=== PATIENT | male | born 1950 | race Caucasian/White ===

== ENCOUNTER 2018-05-12 00:47 | Outpatient (CLI) | payer MEDICARE, BC, SELFPAY ==
--- NOTE | 2018-05-12 10:15 | DI.US_ITS ---
SYMPTOMS/DIAGNOSIS: DIZZINESS CAROTID ULTRASOUND: A small amount of calcific plaque is seen in the both common carotid bulbs. The velocity measurements obtained are within the normal range. No significant stenosis is visible. The vertebral arteries show antegrade flow. IMPRESSION: Small amount of calcific plaque in the common carotid bulbs. No significant internal carotid artery stenosis.
== END 2018-05-12 01:07 ==
PROVIDERS: PCP Family Medicine; Visit Provider Family Medicine
DX: R42 Dizziness and giddiness (principal); I77.89 Other specified disorders of arteries and arterioles
CPT/HCPCS: 93880

== ENCOUNTER 2018-05-24 13:31 | Outpatient (CLI) | payer MEDICARE, BC, SELFPAY ==
--- NOTE | 2018-06-14 16:26 | W.CARDEVENT ---
Cardiac Event Recorder Cardiac Event Note: [facility] cardiac event recorder report Date of service: 05/24/2018 Enrollment: 05/24/2018-06/07/2018 Referring clinician: Dr. Chacha Hamm Indication: Palpitations Findings: 1. Baseline sinus rhythm, heart rate spectrum 42-146/min, average 75/min. 2. Rare PAC, less than 1%, 26 SVT runs, fastest 5 beats at 231/min, longest 12 seconds at 112/min. Likely ectopic atrial tachycardia. 3. Rare PVC, less than 1%, no VT. 4. No significant pauses. 5. 17 trigger events: 2 with brief SVT runs, 15 with sinus rhythm and single PAC/PVC. 6. Symptoms: Fluttering/racing x4, sinus rhythm, 52-87/min, one with 3-beat SVT run. Skipped/irregular beats x5, sinus rhythm, 73-87/min, one with PVC. No symptoms x3, with sinus rhythm, 2 episodes with PVCs.
--- NOTE | 2018-06-14 16:31 | CER_ITS ---
Cardiac Event Recorder Cardiac Event Note: [employer] cardiac event recorder report Date of service: 05/24/2018 Enrollment: 05/24/2018-06/07/2018 Referring clinician: Dr. Chacha Hamm Indication: Palpitations Findings: 1. Baseline sinus rhythm, heart rate spectrum 42-146/min, average 75/min. 2. Rare PAC, less than 1%, 26 SVT runs, fastest 5 beats at 231/min, longest 12 seconds at 112/min. Likely ectopic atrial tachycardia. 3. Rare PVC, less than 1%, no VT. 4. No significant pauses. 5. 17 trigger events: 2 with brief SVT runs, 15 with sinus rhythm and single PAC/PVC. 6. Symptoms: Fluttering/racing x4, sinus rhythm, 52-87/min, one with 3-beat SVT run. Skipped/irregular beats x5, sinus rhythm, 73-87/min, one with PVC. No symptoms x3, with sinus rhythm, 2 episodes with PVCs.
== END 2018-05-24 13:51 ==
PROVIDERS: PCP Family Medicine; Visit Provider Family Medicine
DX: R00.2 Palpitations (principal); I47.1 Supraventricular tachycardia
CPT/HCPCS: 93225

== ENCOUNTER 2018-06-09 02:48 | Outpatient (CLI) | payer MEDICARE, BC, SELFPAY ==
[2018-06-09 13:26] LABS: CREATININE 1.12 mg/dL (0.70-1.30); Cholesterol 142 mg/dL (50-200); HDL Cholesterol 46 mg/dL (40-60); LDL CHOLESTEROL 88 mg/dL (<100); Triglyceride 87 mg/dL (30-150)
== END 2018-06-09 03:08 ==
PROVIDERS: PCP Family Medicine; Visit Provider Family Medicine
DX: E78.5 Hyperlipidemia, unspecified (principal); I10 Essential (primary) hypertension
CPT/HCPCS: 36415; 80061; 83721; 82565

== ENCOUNTER 2018-06-14 16:29 | Outpatient (CLI) | payer MEDICARE, BC, SELFPAY | END 2018-06-14 16:49 | PROVIDERS: PCP Family Medicine; Visit Provider Internal Medicine Cardiovascular Disease | DX: R00.2 Palpitations (principal); I47.1 Supraventricular tachycardia | CPT/HCPCS: 0298T ==

== ENCOUNTER 2018-08-15 09:40 | Day surgery (SDC) | payer MEDICARE, BC, SELFPAY ==
[2018-08-15 10:01] VITALS: BP 139/84; PULSE 65; RESP 16; TEMP 35.1; O2SAT 97
[2018-08-15] MEDS: Lactated Ringers 1,000 ML 30 ML IV (10:20)
--- NOTE | 2018-08-15 11:40 | W.COLOREPORT ---
Date of service: 08/15/18 Time of Service: 11:00 Colonoscopy Report Date of procedure: 08/15/18 Pre-op diagnosis general: Personal history of colon polyps Post-op diagnosis procedure note: other Procedure: Colonoscopy to the cecum Surgeon: Magno Carbone Anesthesia proc note operative: MAC (Franci Orlando CRNA; ASA 2 Mallampati class II) Estimated blood loss (mL): 0 Pathology: none sent Complications: None Disposition: same day Indications: 67 y/o male with history of HTN and tachycardia presents for colonoscopy screening pre-op. His last screening was in 2014, which was remarkable for tubular adenoma. He denies a family history of colon cancer, reporting his mother and sister both had breast cancer and some form of gynecological malignancies. He denies any changes in bowel habits including bloody or black tarry stools, abdominal pain, diarrhea or constipation. He denies constitutional symptoms. Denies use of marijuana or any other recreational or illegal drugs. He reports feelings of palpitations which was worked up by Dr. Hamm. Following use of a Zio patch (05/24-06/07/18) results showed baseline sinus rhythm with occasional SVT which is most likely ectopic atrial tachycardia. He reports he continues to have sensation of palpitations 2-3x/week. He denies chest pain, dyspnea or dyspnea with exertion. He walks 1 mile/day on most days. He denies prior history or family history of adverse reactions or complications with anesthesia. The colonoscopy procedure was reviewed with Mr. Sullivan, and the risk of the procedure were discussed with him. All his questions were answered to his satisfaction. Consent was obtained to proceed with colonoscopy Prep: Miralax/Dulcolax (Prep quality excellent) Procedure Start Time: 11:14 Procedure End Time: 11:30 Retraction Time: 10 Findings: In examining the colon from cecum to anus, no abnormalities were noted of the colon, rectum, nor anorectal junction. Procedure Description: The patient was seen in the day surgery waiting area. His identification was confirmed, and procedure checked. He was then brought to the procedure room. Monitoring for telemetry, blood pressure, oxygen saturation, and end tidal CO2 monitoring were applied. An appropriate time out was performed to confirm, identification, allergies, medication, procedure, was performed. Sedation was titrated for affect by the ADVERTISING CAMPAIGN MANAGER; Once adequate sedation was achieved, I performed a inspection of the external perineum, and a digitial rectal examination. No significant external abnormalities were noted. On digital rectal examination, there was no blood, no masses, good rectal tone, and a normal prostate. I advanced the colonoscope from the anus to the cecum under direct visualization. The cecum was identified by the ileal-cecal valve, and the appendiceal orifice. The scope was then withdrawn in circumferential manner from the cecum to the rectum. No abnormalites were noted in the colon. The scope was then withdrawn into the rectum, and retroflexed. No abnormalities were noted of the rectum or anorectal junction. The scope was then withdrawn, terminating the procedure. There were no complications during the procedure, and the patient tolerated the procedure well. He was returned to the day surgery recovery area in good condition. Plan: Will continue with routine screening for colorectal cancer according to current consensus guidelines, which is currently 10 years.
--- NOTE | 2018-08-15 11:56 | PDOC.DSDIS_ITS ---
Discharge Plan Disposition Patient Disposition: HOME Condition: Good Discharge Details Reason For Visit: SCREENING Attending Provider: Magno Carbone Primary Care Provider: Soto Hamm Home Meds and New Rx's Prescriptions: Continue aspirin [Adult Low Dose Aspirin] 81 mg tablet,delayed release (DR/EC) 81 mg PO DAILY RF: 0 amlodipine 5 mg tablet 5 mg PO DAILY Qty: 90 RF: 3 simvastatin 10 mg tablet 10 mg PO QPM Qty: 90 RF: 3 finasteride 5 mg tablet 5 mg PO DAILY Qty: 90 RF: 3 omeprazole 20 mg tablet,delayed release (DR/EC) 20 mg PO DAILY PRN (Reason: gerd) RF: 0 tamsulosin 0.4 mg capsule 0.4 mg PO DAILY Qty: 90 RF: 3 CENTRUM SILVER TABLET 1 EACH tablet 1 ea PO DAILY RF: 0 ibuprofen 200 mg Capsule 200 mg PO PRN PRNRF: 0 Discontinued bisacodyl [Dulcolax (bisacodyl)] 5 mg tablet,delayed release (DR/EC) 5 mg PO ONCE Qty: 4 RF: 0 polyethylene glycol 3350 17 gram/dose powder 255 g PO ONCE Qty: 255 RF: 0 Discharge Instructions Instructions: Colonoscopy (DC) Stand Alone Forms: Judy Laurent (LIZAU) Activity:: Activity as Tolerated Diet:: As Tolerated Discharge Orders Discharge Orders: Discharge Order (Routine); Ordered 08/15/18 Ordered By: Magno Carbone DS: Diagnosis Discharge Diagnosis (1) Personal history of colon cancer: Status: Acute Asessment and Plan: Colonoscopy Performed: Colonoscopy Report Date of procedure: 08/15/18 Pre-op diagnosis general: Personal history of colon polyps Post-op diagnosis procedure note: other Procedure: Colonoscopy to the cecum Surgeon: Magno Carbone Anesthesia proc note operative: MAC (Franci Orlando CRNA; ASA 2 Mallampati class II) Estimated blood loss (mL): 0 Pathology: none sent Complications: None Disposition: same day Indications: 67 y/o male with history of HTN and tachycardia presents for colonoscopy screening pre-op. His last screening was in 2014, which was remarkable for tubular adenoma. He denies a family history of colon cancer, reporting his mother and sister both had breast cancer and some form of gynecological malignancies. He denies any changes in bowel habits including bloody or black tarry stools, abdominal pain, diarrhea or constipation. He denies constitutional symptoms. Denies use of marijuana or any other recreational or illegal drugs. He reports feelings of palpitations which was worked up by Dr. Hamm. Following use of a Zio patch (05/24-06/07/18) results showed baseline sinus rhythm with occasional SVT which is most likely ectopic atrial tachycardia. He reports he continues to have sensation of palpitations 2-3x/week. He denies chest pain, dyspnea or dyspnea with exertion. He walks 1 mile/day on most days. He denies prior history or family history of adverse reactions or complications with anesthesia. The colonoscopy procedure was reviewed with Mr. Sullivan, and the risk of the procedure were discussed with him. All his questions were answered to his satisfaction. Consent was obtained to proceed with colonoscopy Prep: Miralax/Dulcolax (Prep quality excellent) Procedure Start Time: 11:14 Procedure End Time: 11:30 Retraction Time: 10 Findings: In examining the colon from cecum to anus, no abnormalities were noted of the colon, rectum, nor anorectal junction. Procedure Description: The patient was seen in the day surgery waiting area. His identification was confirmed, and procedure checked. He was then brought to the procedure room. Monitoring for telemetry, blood pressure, oxygen saturation, and end tidal CO2 monitoring were applied. An appropriate time out was performed to confirm, identification, allergies, medication, procedure, was performed. Sedation was titrated for affect by the STRUCTURES ENGINEER; Once adequate sedation was achieved, I performed a inspection of the external perineum, and a digitial rectal examination. No significant external abnormalities were noted. On digital rectal examination, there was no blood, no masses, good rectal tone, and a normal prostate. I advanced the colonoscope from the anus to the cecum under direct visualization. The cecum was identified by the ileal-cecal valve, and the appendiceal orifice. The scope was then withdrawn in circumferential manner from the cecum to the rectum. No abnormalites were noted in the colon. The scope was then withdrawn into the rectum, and retroflexed. No abnormalities were noted of the rectum or anorectal junction. The scope was then withdrawn, terminating the procedure. There were no complications during the procedure, and the patient tolerated the procedure well. He was returned to the day surgery recovery area in good condition. Plan: Will continue with routine screening for colorectal cancer according to current consensus guidelines, which is currently 10 years.
[2018-08-15 12:12] VITALS: BP 130/78; PULSE 63; RESP 16; TEMP 35.7; O2SAT 99
== END 2018-08-15 12:48 | disposition home or self-care (01) ==
PROVIDERS: PCP Family Medicine; Visit Provider Surgery
PROC: 0DJD8ZZ Inspection of Lower Intestinal Tract, Via Natural or Artificial Opening Endoscopic (ICD-10-PCS; CPT 45378; principal; 2018-08-15 10:45)
DX: Z12.11 Encounter for screening for malignant neoplasm of colon (principal); Z86.010 Personal history of colon polyps; I10 Essential (primary) hypertension; F17.210 Nicotine dependence, cigarettes, uncomplicated
CPT/HCPCS: G0105

== ENCOUNTER 2018-09-15 17:33 | Outpatient (REF) | payer MEDICARE, BC, SELFPAY | END 2018-09-15 17:53 | LOC: LBN 17:33 | PROVIDERS: PCP Family Medicine; Visit Provider Family Medicine | DX: R30.0 Dysuria (principal) | CPT/HCPCS: 87077; 87086; 87186 ==

== ENCOUNTER → 2018-09-25 08:47 | Outpatient (BNVA) | payer MEDICARE, BC, SELFPAY | PROVIDERS: PCP Family Medicine; Visit Provider Urology | DX: I10 Essential (primary) hypertension; N20.0 Calculus of kidney | CPT/HCPCS: 81003; 99213 ==

== ENCOUNTER 2018-10-02 16:59 | Outpatient (REF) | payer MEDICARE, BC, SELFPAY | END 2018-10-02 17:19 | LOC: LBN 16:59 | PROVIDERS: PCP Family Medicine; Visit Provider Family Medicine | DX: N39.0 Urinary tract infection, site not specified (principal) | CPT/HCPCS: 87077; 87086; 87186 ==

== ENCOUNTER 2018-10-27 00:18 | Outpatient (CLI) | payer MEDICARE, BC, SELFPAY ==
--- NOTE | 2018-10-27 13:45 | DI.US_ITS ---
SYMPTOMS/DIAGNOSIS: RECENT UTI, F/U STONES, N20.0 RENAL ULTRASOUND: The kidneys are normal in size and shape. There is no evidence of hydronephrosis. There is an upper pole left renal cyst as previously noted. There is a 4 mm echogenic focus in the left kidney inferior pole with twinkle artifact consistent with a small stone. No definite right renal calculi seen. Urinary bladder unremarkable in appearance with prevoid and postvoid urinary bladder volume measurements 72 cc and 32 cc, respectively. CONCLUSION: Nonobstructing left nephrolithiasis. No other specific abnormality.
== END 2018-10-27 00:38 ==
PROVIDERS: PCP Family Medicine; Visit Provider Urology
DX: N39.0 Urinary tract infection, site not specified; N41.9 Inflammatory disease of prostate, unspecified; I10 Essential (primary) hypertension; Z87.442 Personal history of urinary calculi; B96.20 Unspecified Escherichia coli [E. coli] as the cause of diseases classified elsewhere
CPT/HCPCS: 76770; 99213

== ENCOUNTER → 2018-11-14 15:16 | Outpatient (BNVA) | payer MEDICARE, BC, SELFPAY | PROVIDERS: PCP Family Medicine; Visit Provider Urology | DX: Z87.440 Personal history of urinary (tract) infections (principal); I10 Essential (primary) hypertension | CPT/HCPCS: 99213 ==

== ENCOUNTER 2019-05-28 00:01 | Outpatient (CLI) | payer MEDICARE, BC, SELFPAY ==
--- NOTE | 2019-05-28 07:23 | MERGEMPI_ITS ---
*[facility]* *[facility]* [address] [place] [address] Myocardial Perfusion Imaging - SPECT Florencio protocol Date of study: 05/28/2019 *PATIENT PRESENTATION* Height: 169.5cm (66.8in) Blood Pressure: Weight: 107.7kg (237lb) BSA: 2.3m^2 Referring physician: Prakash Xavier MD Ordering physician: Soto Hamm Impressions: Normal perfusion by Tc99m Sestamibi Imaging. Summary: 1. Myocardial perfusion imaging: No myocardial perfusion defects noted. 2. The calculated left ventricular ejection fraction after stress: 57%. LV global systolic function is normal. No left ventricular regional motion abnormality. Indication: R07.9. History: REASON FOR TESTING: PATIENT REPORTS SOB AND OCCASIONALBURNING MIDSTERNAL CHEST DISCOMFORT WITH EXERTION THAT IS RELEIVED WITH REST. HE REPORTS THE BURNING CAN HAPPEN AT THE END OF HIS 2-3 MILE WALK IF HE WALKS BRISKLY. PATIENT DENIES CHEST PAIN UPON ARRIVAL TO TESTING TODAY. SIGNIFICANT PAST MEDICAL HISTORY: SUPRAVENTRICULAR TACHYCARDIA ABLATION (CHRONIC 01/2013), GERD, SPINAL STENOSIS. SMOKING STATUS: CURRENT -OCCASIONAL, PIPE EXERCISE ROUTINE: 2-3 MILE WALK EVERY DAY. Risk factors: Family history of coronary artery disease. Hypertension. Obesity. Dyslipidemia. Cholesterol: 142mg/dl. HDL: 46mg/dl. LDL: 88mg/dl. Triglycerides: 87mg/dl. ALLERGIES: PENICILLIN, SULFA, CIPROFLOXACIN. MEDICATIONS: MULTIVITAMIN DAILY, ASPIRIN 81 MG DAILY, AMLODIPINE 5 MG DAILY, FINASTERIDE 5 MG DAILY, SIMVASTATIN 10 MG QPM, IBUPROFEN 200 MG PRN, NITROFURANTION MONOHYDRATE/MACROCRYYSTALS 100 MG PRN, OMEPRAZOLE 20 MG FOUR TIMES PER WEEK, TAMULOSIN 0.4 MG THREE DAYS A WEEK. Imaging Technique: Protocol: Florencio protocol. Acquisition: Gated SPECT; 1 day - rest/stress. The patient was imaged in the supine position. Attenuation correction used. Isotope administration: - Rest. Tc[99m]-sestamibi. Dose: 12.3mCi. Injection time: 08:50 AM. Injection to stress time: 00:45. - Stress. Tc[99m]-sestamibi. Dose: 37.1mCi. Injection time: 11:34 AM. 1-2 min before end of exercise Baseline ECG: NO CURRENT EKG FOR COMPARISON. TODAY'S EKG- SINUS BRAQDYCARDIA, HR 52. Stress protocol: + +---+ +---+ !Stage !HR !BP (mmHg) !Sat! + +---+ +---+ !Baseline supine !52 !142/90 (107)!---! + +---+ +---+ !Baseline standing !68 !150/98 (115)!---! + +---+ +---+ !Stage I; 1.7mph, 10degrees; 3 min !114!158/74 (102)!97%! + +---+ +---+ !Stage II; 2.5mph, 12degrees; 3 min!136!168/92 (117)!96%! + +---+ +---+ !Recovery; 1 min !176!180/76 (111)!---! + +---+ +---+ !Recovery; 3 min !84 !170/80 (110)!---! + +---+ +---+ !Recovery; 6 min !73 !162/84 (110)!---! + +---+ +---+ * Stress results: EXCERCISE TESTING ENDED IN 6 MINUTES DUE TO FATIGUE. HYPERTENSIVE BLOOD PRESSURE RESPONSE. MAX HEART RATE: 176 % OF TARGET HEART RATE ACHIEVED: 117 MET'S: 7.05 ECTOPY: BIGEMINY OF PVC'S INTERMITTANT THROUGHOUT EXCERCISE. AT THE END OF EXCERCISE, THE HR JUMPED TO 176 WITH ONSET OF SVT. THIS DID BREAK SPONTANEOUSLY TO HR OF 141 AT 1 MIN,45 SECS OF RECOVERY. ANGINA: CHEST PAIN REPORTED AT THE START OF RECOVERY- 2/10 SEVERITY, LOCATED MIDSTERNAL WITH NO RADIATION. THIS PAIN WAS COMPLETELY RESOLVED AT 1 MIN 45 SECS OF RECOVERY WHEN THE PATIENT'S HRAND RHYTHM RETURNED TO SIMPLY SINUS TACHYCARDIA. ST SEGMENT CHANGES TRANSIENT CHANGES NOTED DCURING PERIOD OF SVT, BACK TO BASELINE FOR THE DURATION OF RECOVERY. FUNCTIONAL CAPACITY: MILDLY DIMINISHEND CAPACITY. The rate-pressure product for the peak heart rate and blood pressure was 45449zk Hg/min. Myocardial perfusion: Imaging information: gated. No myocardial perfusion defects noted. Ventricular Function (Wall Motion): The calculated left ventricular ejection fraction after stress: 57%. LV global systolic function is normal. No left ventricular regional motion abnormality. Study data: Prakash Xavier MD supervised and was readily available during the procedure. This study was interpreted by [facility]. Study status: Routine. Consent: The risks, benefits, and alternatives to the procedure were explained to the patient and informed consent was obtained. Procedure: Initial setup. A baseline ECG was recorded. Surface ECG leads and manual cuff blood pressure measurements were monitored. Heart sounds: Normal. Lung sounds: Normal. Treadmill exercise testing was performed using the Florencio protocol. Study completion: All catheters inserted during the procedure were removed. The patient tolerated the procedure well and was discharged from the lab. Discharge: The patient left the laboratory in stable condition. Birthdate: Patient birthdate: 1950. Sex: Gender: male. Study date: Study date: 05/28/2019. Study time: 00:01 AM. Electronically signed by Prakash Xavier MD 05/28/2019 18:29
== END 2019-05-28 00:21 ==
PROVIDERS: PCP Family Medicine; Visit Provider Family Medicine
DX: R07.9 Chest pain, unspecified (principal); R06.02 Shortness of breath; I10 Essential (primary) hypertension; E78.5 Hyperlipidemia, unspecified; I47.1 Supraventricular tachycardia; K21.9 Gastro-esophageal reflux disease without esophagitis; Z82.49 Family history of ischemic heart disease and other diseases of the circulatory system
CPT/HCPCS: 78452; 93016; 93018; 93017

== ENCOUNTER 2019-10-05 09:36 | Outpatient (CLI) | payer MEDICARE, BC, SELFPAY ==
[2019-10-05 12:28] LABS: Abs Immature Grans 0.02 k/cumm (0.0-0.09); Absolute Basophil Count 0.03 k/cumm (0.0-0.2); Absolute Eosinophil Count 0.13 k/cumm (0.0-0.7); Absolute Lymphocyte Count 1.13 k/cumm (1.2-3.4); Absolute Monocyte Count 0.65 k/cumm (0.11-0.7); Absolute Neutrophil Count 5.67 k/cumm (1.2-6.7); Basophils % 0.4; Eosinophils % 1.7; HCT 50.6 % (40.0-50.0); HGB 17.2 g/dL (13.5-17.5); Immature Grans % 0.3 %; Lymphocytes % 14.8; Mean Corpuscular Hemoglobin 29.9 pg (27.0-33.0); Mean Platelet Volume 10.5 fL (8.0-11.0); Monocytes % 8.5; Neutrophils % 74.3; Platelet Count 261 x1000/uL (130-400); RBC 5.75 m/cumm (4.50-6.00); RBC Distribution Width 13.4 % (11.8-14.1); White Blood Cell Count 7.63 k/cumm (4.4-10.8)
[2019-10-05 12:45] LABS: Anion Gap 10.1 mmol/L (3-11); BUN 24 mg/dL (7-18); CO2 24.9 mmol/L (21.0-32.0); CREATININE 1.15 mg/dL (0.70-1.30); Calcium 9.2 mg/dL (8.5-10.1); Calculated LDL 83 mg/dL (<100); Chloride 106 mmol/L (98-107); Cholesterol 144 mg/dL (<200); Glucose 103 mg/dL (74-106); HDL Cholesterol 39 mg/dL (40-60); Potassium 4.6 mmol/L (3.5-5.1); Sodium 141 mmol/L (136-145); Triglyceride 112 mg/dL (<150)
== END 2019-10-05 09:56 ==
PROVIDERS: PCP Family Medicine; Visit Provider Family Medicine
DX: R06.02 Shortness of breath (principal); E78.5 Hyperlipidemia, unspecified; D64.9 Anemia, unspecified; R06.09 Other forms of dyspnea; I48.91 Unspecified atrial fibrillation; I49.3 Ventricular premature depolarization
CPT/HCPCS: 36415; 80048; 80061; 85025; 93225

== ENCOUNTER 2019-10-10 10:18 | Outpatient (CLI) | payer MEDICARE, BC, SELFPAY ==
--- NOTE | 2019-10-11 09:03 | W.HOLTRPT ---
Date of service: 10/11/19 Time of Service: 09:03 Holter Monitor Report Holter Monitor Note: This is a 2-day Holter monitor ordered for the indication of dyspnea. ?The patient was in atrial fibrillation for the entirety of the recording. The maximum heart rate was 162 bpm (average rate was 102 bpm). ?There were a 11 single ventricular ectopic beats. ?There were no episodes of ventricular tachycardia, no pauses greater than 3 seconds and no evidence of high degree heart block. ?Patient triggered events were all associated with atrial fibrillation, sometimes rapid.
== END 2019-10-10 10:38 ==
PROVIDERS: PCP Family Medicine; Visit Provider Family Medicine
DX: R06.09 Other forms of dyspnea (principal); I48.91 Unspecified atrial fibrillation; I49.3 Ventricular premature depolarization
CPT/HCPCS: 93226

== ENCOUNTER 2019-10-11 09:03 | Outpatient (CLI) | payer MEDICARE, BC, SELFPAY | END 2019-10-11 09:23 | PROVIDERS: PCP Family Medicine; Referring Provider Family Medicine; Visit Provider Internal Medicine Cardiovascular Disease | DX: R06.09 Other forms of dyspnea (principal); I48.91 Unspecified atrial fibrillation; I49.3 Ventricular premature depolarization | CPT/HCPCS: 93227 ==

== ENCOUNTER 2019-10-25 12:26 | Outpatient (CLI) | payer MEDICARE, BC, SELFPAY ==
[2019-10-25 13:33] LABS: Abs Immature Grans 0.02 k/cumm (0.0-0.09); Absolute Basophil Count 0.03 k/cumm (0.0-0.2); Absolute Eosinophil Count 0.18 k/cumm (0.0-0.7); Absolute Lymphocyte Count 1.18 k/cumm (1.2-3.4); Absolute Monocyte Count 0.66 k/cumm (0.11-0.7); Absolute Neutrophil Count 5.82 k/cumm (1.2-6.7); Basophils % 0.4; Eosinophils % 2.3; HCT 46.8 % (40.0-50.0); HGB 15.7 g/dL (13.5-17.5); Immature Grans % 0.3 %; Mean Corp. HGB Concentration 33.5 g/dL (32.0-36.0); Mean Corpuscular Hemoglobin 29.6 pg (27.0-33.0); Mean Corpuscular Volume 88.3 fL (80-95); Mean Platelet Volume 9.5 fL (8.0-11.0); Monocytes % 8.4; Neutrophils % 73.6; Platelet Count 265 x1000/uL (130-400); RBC Distribution Width 13.4 % (11.8-14.1); White Blood Cell Count 7.89 k/cumm (4.4-10.8)
[2019-10-25 14:33] LABS: Anion Gap 8.9 mmol/L (3-11); BUN 24 mg/dL (7-18); CO2 28.1 mmol/L (21.0-32.0); CREATININE 1.42 mg/dL (0.70-1.30); Chloride 107 mmol/L (98-107); Estimated GFR 49.15 (mL/min/1.73m2); Glucose 97 mg/dL (74-106); Potassium 4.6 mmol/L (3.5-5.1); Sodium 144 mmol/L (136-145); TSH (W/Ref FT4) 1.67 uIU/mL (0.36-3.74)
== END 2019-10-25 12:46 ==
PROVIDERS: PCP Family Medicine; Visit Provider Student in an Organized Health Care Education/Training Program
DX: I48.91 Unspecified atrial fibrillation (principal)
CPT/HCPCS: 36415; 80048; 85027; 84443; 85025

== ENCOUNTER 2019-11-13 09:44 | Outpatient (CLI) | payer MEDICARE, BC, SELFPAY ==
[2019-11-13 11:54] LABS: BUN 29 mg/dL (7-18); CREATININE 1.26 mg/dL (0.70-1.30); Estimated GFR 56.42 (mL/min/1.73m2)
== END 2019-11-13 10:04 ==
PROVIDERS: PCP Family Medicine; Visit Provider Family Medicine
DX: R79.89 Other specified abnormal findings of blood chemistry (principal)
CPT/HCPCS: 36415; 84520; 82565

== ENCOUNTER 2021-01-08 01:43 | Outpatient (CLI) | payer MEDICARE, BC, SELFPAY ==
--- NOTE | 2021-01-08 07:30 | DI.RAD_ITS ---
Exam(s) XR HIP PELVIS ADULT BL EXAM: XR HIP PELVIS ADULT BL CLINICAL HISTORY: low back and BILAT HIP PAIN,M25.552,M25.551 TECHNIQUE: COMPARISON: No exams were available for comparison FINDINGS: Four views of the hips and pelvis were obtained. Cartilaginous joint spaces of the hips appear fairl y well maintained. There is minimal marginal osteophyte formation both acetabula, no other significa nt bony abnormality seen. No significant soft tissue abnormality. IMPRESSION: Slight DJD both hips. RADIATION DOSE DELIVERED: Total DLP
--- NOTE | 2021-01-08 07:30 | DI.RAD_ITS ---
Exam(s) XR LUMBAR SPINE COMPLETE EXAM: XR LUMBAR SPINE COMPLETE CLINICAL HISTORY: low back and kristie hip pain,M54.5 TECHNIQUE: COMPARISON: CT ABD/PELVIS WO W CONTRAST from 02/21/2017 FINDINGS: Five views were obtained. There is a moderate left convex lumbar scoliosis. The L3 vertebral body i s subluxed laterally on L4. Similar findings appear to have been present on prior CT instructional services specialist view February 2017. There are very prominent hypertrophic endplate changes seen throughout the lumbar region. Prominent hypertrophic facet joint changes also noted throughout. There is no evidence of acute fracture. No gross spondylolysis. There is a mild anterior pseudo spondylolisthesis of L4 on L5, unchanged from p rior CT images of 2017. There is multilevel disc space narrowing and vacuum disc phenomenon consistent with disc degeneration . IMPRESSION: Severe degenerative changes of the lumbar spine as described above. No evidence of acute fracture or dislocation. RADIATION DOSE DELIVERED: Total DLP
== END 2021-01-08 02:03 ==
PROVIDERS: PCP Family Medicine; Visit Provider Family Medicine
DX: M54.5 Low back pain (principal); M25.551 Pain in right hip; M25.552 Pain in left hip; M47.816 Spondylosis without myelopathy or radiculopathy, lumbar region; M16.0 Bilateral primary osteoarthritis of hip
CPT/HCPCS: 73521; 72110

== ENCOUNTER 2021-06-24 01:38 | Outpatient (CLI) | payer MEDICARE, BC, SELFPAY ==
[2021-06-24 11:06] LABS: HCT 46.4 % (40.0-50.0); HGB 15.5 g/dL (13.5-17.5); MCHC 33.4 % (32.0-36.0); MCV 89.7 fL (80-95); MPV 10.3 fL (8.0-11.0); Platelet Count 143 10^3/uL (130-400); RBC 5.17 10^6/uL (4.36-5.78); RDW 12.9 % (11.8-14.1); RDW-SD 42.6 fL; WBC 5.52 10^3/uL (4.4-10.8)
[2021-06-24 11:27] LABS: Anion Gap 11.2 mmol/L (3-11); BUN 21 mg/dL (7-18); CO2 22.8 mmol/L (21.0-32.0); CREATININE 1.1 mg/dL (0.70-1.30); Calcium 9.2 mg/dL (8.5-10.1); Calculated LDL 82 mg/dL (<100); Chloride 107 mmol/L (98-107); Cholesterol 140 mg/dL (<200); Glucose 122 mg/dL (74-106); HDL Cholesterol 45 mg/dL (40-60); Potassium 4.4 mmol/L (3.5-5.1); Sodium 141 mmol/L (136-145); Triglyceride 65 mg/dL (<150)
[2021-06-24 20:29] LABS: Hemoglobin A1C 5.9 % (<5.7)
== END 2021-06-24 01:39 | disposition home or self-care (01) ==
LOC: LOS 01:38
PROVIDERS: PCP Family Medicine; Visit Provider Family Medicine
DX: R73.9 Hyperglycemia, unspecified; E78.5 Hyperlipidemia, unspecified; E87.1 Hypo-osmolality and hyponatremia; R53.83 Other fatigue
CPT/HCPCS: 36415; 80048; 80061; 85027; 83036

== ENCOUNTER 2021-10-13 02:00 | Outpatient (CLI) | payer MEDICARE, SELFPAY ==
[2021-10-13 10:48] LABS: Abs Immature Grans 0.04 10^3/uL (0.0-0.06); Absolute Basophil Count 0.02 10^3/uL (0.0-0.2); Absolute Eosinophil Count 0.02 10^3/uL (0.0-0.7); Absolute Lymphocyte Count 0.64 10^3/uL (1.2-3.4); Absolute Monocyte Count 0.72 10^3/uL (0.1-0.8); Absolute Neutrophil Count 6.86 10^3/uL (1.2-6.7); Basophils % 0.2; Eosinophils % 0.2; HCT 42.9 % (40.0-50.0); HGB 13.8 g/dL (13.5-17.5); Immature Grans % 0.5; Lymphocytes % 7.7; MCH 30.5 pg (27.0-33.0); MCHC 32.2 % (32.0-36.0); MCV 94.9 fL (80-95); MPV 11.2 fL (8.0-11.0); Monocytes % 8.7; Neutrophils % 82.7; Nucleated RBC 0 %; Platelet Count 214 10^3/uL (130-400); RBC 4.52 10^6/uL (4.36-5.78); RDW 14.3 % (11.8-14.1)
[2021-10-13 11:46] LABS: Anion Gap 11.6 mmol/L (3-11); BUN 15 mg/dL (7-18); CO2 24.4 mmol/L (21.0-32.0); CREATININE 1.1 mg/dL (0.70-1.30); Chloride 107 mmol/L (98-107); Glucose 142 mg/dL (74-106); Potassium 3.9 mmol/L (3.5-5.1); Sodium 143 mmol/L (136-145); TSH (W/Ref FT4) 2.24 uIU/mL (0.36-3.74)
[2021-10-13 12:51] LABS: Lab Add On Test DONE
[2021-10-13 13:14] LABS: Hemoglobin A1C 5.7 % (<5.7)
[2021-10-16 15:11] LABS: Lab Add On Test SEE COMENT
[2021-10-16 15:20] LABS: Lipase 408 U/L (73-393)
== END 2021-10-13 02:01 | disposition home or self-care (01) ==
LOC: LBO 02:00
PROVIDERS: PCP Family Medicine; Visit Provider Family Medicine
DX: E03.9 Hypothyroidism, unspecified (principal); E87.1 Hypo-osmolality and hyponatremia; R73.09 Other abnormal glucose; R10.9 Unspecified abdominal pain
CPT/HCPCS: 36415; 80048; 83690; 83036; 84443; 85025

== ENCOUNTER 2021-10-19 19:12 | Outpatient (CLI) | payer MEDICARE, SELFPAY ==
[2021-10-19] MEDS: Breeza Beverage 473 ML BTL PO ×2 (09:29→09:30)
[2021-10-19] MEDS: Omnipaque 350 MG/ML 50 ML BTL PO (09:31)
--- NOTE | 2021-10-19 10:00 | DI.CT_ITS ---
Exam(s) CT ABDOMEN PELVIS W EXAM: CT ABDOMEN PELVIS W CLINICAL HISTORY: abd pain and diarrhea,tubulo interstitial nephritis,n12. TECHNIQUE: Imaging Protocol: Axial computed tomography images with coronal and sagittal reformatted images were created and reviewed CONTRAST MATERIAL: Intravenous: Omnipaque 100cc Oral: Yes COMPARISON: CT ABD/PELVIS WO W CONTRAST from 02/21/2017 FINDINGS: VISUALIZED LUNG BASES: Some infiltrate noted in the right lung base. There are bilateral pleural eff usions, right larger than left and the right is associated with volume loss in the posterior basal se gment of the right lower lobe.. ABDOMEN: LIVER: Liver appears cirrhotic when compared to the prior CT scan of 2017. The previously described c ysts are again noted in the liver, the largest being in the superior aspect of the right hepatic lobe , presently measuring 11.5 by 9.5 by 12.5 cm craniocaudal. In addition to benign cysts liver also co ntains multiple abnormal hypodensities which were not evident on the 2017 study and are suspicious fo r metastatic disease. The liver size also appears to have increased from the prior 2017 CT scan. GALLBLADDER/BILIARY: No obvious gallbladder pathology. CBD is not dilated. PANCREAS: There is a cystic structure in the pancreatic tail measuring approximately 3 by 2 by 4 cm c raniocaudal. Probably cystic neoplasm. Another hypodense lesions seen the region pancreatic head me asuring 9-10 millimeters, best seen on the coronal images. Pancreatic duct is not dilated. SPLEEN: Spleen is not enlarged. No obvious intrasplenic lesions. Splenic and portal veins are paten t. ADRENALS: There are no significant adrenal masses. KIDNEYS:There is a small benign cyst off the posterior cortex of the right kidney again noted, measur ing 1 cm. No other significant focal right kidney findings. In the opposite-left kidney there is a sub cm laterally located cyst again noted and another similar size cyst again noted medially. The pr eviously present larger parapelvic cyst is not seen on today's study. There is a calculus in upper p ole calyx measuring 3 millimeters. Other calculus similar size noted in the renal pelvis. The left ureter is not dilated and there are no calculi ureterovesical junctions nor in the nondistended urina ry bladder.. ABDOMINAL AORTA: Calcified and upper normal diameter. Both common iliac arteries are slightly promin ent in diameter but without fusiform aneurysms.. IVC: Again noted (in addition to a right-sided IVC there is also a left-sided IVC which drains into t he left renal vein. Venous return from the left lower extremity reaches the heart both via this left -sided IVC as well as via the right-sided IVC. There is a left common iliac vein which joins the rig ht common iliac vein behind the aortic bifurcation. LYMPH NODES:There is no retroperitoneal nor paraaortic adenopathy. ABDOMINAL WALL: Left inguinal hernia noted which contains fat and some fluid. No bowel loops therein . Right inguinal hernia also noted which contains fat and some fluid, this in Contin UA couch with sm all amount of right pelvic ascites. GI: Oral contrast has reached the rectum. There is no bowel obstruction. However, there is sigmoid diverticulosis. Mild streaking in this region which may be subtle diverticulitis. Mild bowel wall t hickening. Diverticuli are confined to the left side. On the right side the appendix not identified . No evidence of obvious acute appendicitis. PELVIS: LYMPH NODES: There is no intrapelvic nor inguinal adenopathy. REPRODUCTIVE: Prostate gland is not enlarged. Seminal vesicles unremarkable. URINARY BLADDER: No obvious abnormality. No radiopaque calculi therein. No obvious mass. OSSEOUS: No significant osseous lesions. Anterolisthesis L4 upon L5 due to facet arthropathy and unilateral pars defect. This is unchanged fr om previous study of 2017. IMPRESSION: 1. Compared to the CT scan of 2017 there has been significant deterioration. There is presently a ci rrhotic appearing liver which has increased in size. In addition the previously present benign-appea ring cysts in the liver there are now multiple hypodensities which are probably metastatic lesions in the liver. There is some ascites evident-mild. This is most evident in the pelvis and extends into bilateral inguinal hernias. 2. There is a cystic lesion in the pancreatic tail region measuring 2 x 3 x 4 cm. This is probably a cystic neoplasm. This may or may not be responsible for the liver lesions. 3. Extensive sigmoid diverticulosis. Cannot exclude subtle diverticulitis. 4. There are small benign cysts in both kidneys; the largest cyst previously present which was in the left kidney is no longer seen. That was a parapelvic cyst. There are 2 nonobstructive calculi in l eft kidney noted. One of these is in the nondilated renal pelvis. The ureters are not dilated and t here are no calculi in the nondilated ureters nor within the nondistended urinary bladder. 5. Bilateral pleural effusions, right larger than left. The right pleural effusion is so seated wit h some volume loss in the posterior basal segment of the right lower lobe as well as some mild infilt rate. 6. 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 This additional left-sided IVC drain s into the left renal vein. RADIATION DOSE DELIVERED: 2,589.24mGy.cm Total DLP DATA REPOSITORY: All CT scans at this facility are submitted to the National Radiology Data Registry (NRDR) Dose Index Registry (DIR) with the [employer] (A[employer]). RADIATION OPTIMIZATION: All CT scans at this facility use at least one of these dose optimization te chniques: automated exposure control; mA and/or kV adjustment per patient size (includes targeted exa ms where dose is matched to clinical indication); or iterative reconstruction.
[2021-10-19] MEDS: Omnipaque 350 MG/ML 100 ML BTL IJ (10:17)
== END 2021-10-19 19:32 ==
PROVIDERS: PCP Family Medicine; Visit Provider Family Medicine
DX: N12 Tubulo-interstitial nephritis, not specified as acute or chronic (principal); R10.9 Unspecified abdominal pain; R19.7 Diarrhea, unspecified; J90 Pleural effusion, not elsewhere classified; K76.89 Other specified diseases of liver; K86.89 Other specified diseases of pancreas; R18.8 Other ascites; N28.1 Cyst of kidney, acquired; N20.0 Calculus of kidney
CPT/HCPCS: 74177; J3490; Q9967

== ENCOUNTER 2021-11-07 12:22 | Emergency (ER) | payer MEDICARE, SELFPAY ==
[2021-11-07] VITALS (54 sets, daily range): BP systolic 98–124; BP diastolic 54–84; PULSE 76–157; RESP 16–33; TEMP 36.5; O2SAT 90–96
--- NOTE | 2021-11-07 12:15 | RT.EKG_ITS ---
APPROVED REPORT Exam: Resting ECG Reason for Exam: sob Patient Location: E HR:127 bpm ECG Measurements Heart Rate 127 AXIS IA [id number] P [id number] QRSd 94 QRS 107 QT 321 T 15 QTc 467 Conclusion Atrial fibrillation...V-rate 84-161, irreg A-activity Right axis deviation...QRS axis ( 91,269) Low voltage, extremity leads...all extremity leads <0.5mV. Afib. No STEMI. I have reviewed and interpreted ECG and agree with software generated interpretation.
--- NOTE | 2021-11-07 12:48 | ED.GENADUL_ITS ---
Discharge Plan Disposition Patient Disposition: [facility] Condition: Stable Discharge Details Clinical Impression: Pleural effusion, Liver metastases, Atrial fibrillation with rapid ventricular response, Peripheral edema, Transaminitis, Hyperbilirubinemia Primary Care Provider: Soto Hamm ED Provider: Debbie Johnson Home Meds and New Rx's Prescriptions: No Action alfuzosin 10 mg tablet extended release 24 hr 10 mg PO .q t, th,s,tue Qty: 48 3RF Rx Instructions: administer after the same meal each day finasteride 5 mg tablet 5 mg PO DAILY Qty: 90 3RF omeprazole 20 mg tablet,delayed release (DR/EC) 20 mg PO DAILY PRN (Reason: gerd) Qty: 90 3RF simvastatin 10 mg tablet 10 mg PO QPM Qty: 90 4RF CENTRUM SILVER TABLET 1 EACH tablet 1 ea PO DAILY 0RF lorazepam 1 mg tablet 1 mg PO DAILY PRN (Reason: anxiety) Qty: 7 0RF Rx Instructions: take 1 hour prior to flying diltiazem HCl 360 mg capsule,extended release 24hr 360 mg PO DAILY Qty: 30 2RF ibuprofen 200 mg Capsule 200 mg PO PRN PRN0RF metoprolol succinate 50 mg tablet extended release 24 hr 50 mg PO DAILY 0RF Label Comments: TAKE 2 TABLETS BY MOUTH DAILY Discharge Data Discharge Date/Time-TO BE ENTERED AT DEPARTURE: 11/07/21 18:38 Medical Decision Making 71-year-old male with a history atrial fibrillation, colon cancer, liver metastasis with recently noted pancreatic lesion referred to [facility] GI presents for tachycardia, R arm/abdomen/b/l lower extremity swelling, sob w/ exertion, abdominal pain and diarrhea. Heart rate 120s to 140s. Remainder vitals are within normal limits. Patient is oriented and able to provide history. He has 2+ pitting edema to the bilateral lower extremities and edema noted to the right arm. Abdomen is tender in the upper quadrants, worse in the left upper quadrant. He has erythema noted around anus on buttocks but no open wounds. Differential diagnosis includes worsening of his chronic pancreatic and liver disease, UTI, atrial fibrillation with RVR, dehydration, electrolyte abnormality. Will place an IV, give a dose of IV Cardizem, Lasix, Dilaudid and obtain screening labs, urinalysis and CT chest abdomen and pelvis. Labs and imaging reviewed. White blood cell count 13 T bili 5.8, AST 421, ALT 92, alk phos 600. Troponin negative. Lipase within normal limits. Urinalysis notes 10-20 WBCs but no obvious infection CT chest abdomen and pelvis notes: IMPRESSION: Marked interval worsening of right pleural effusion which now occupies a large portion of the right thoracic volume.? There is significant right lung atelectasis. Interval increase in size of presumed innumerable hepatic metastases. Case discussed with general surgery who do not routinely perform thoracentesis here and after review of imaging feel that patient would benefit most from a Pleurx catheter which we do not have available. Recommend discussion of potential transfer to [facility]. His heart rate has improved to the low 100s. He demonstrates no signs of acute respiratory distress. Discussed results with patient's daughter who notes that he is DNR but would like him comfortable. Will discuss with [facility] general surgery if transfer indicated. Patient likely benefit from evaluation with palliative care and discuss his goals going forward. Discussed with [facility] who accepts patient for transfer. Accepting physician Dr. Ramirez. Patient will likely need thoracentesis prior to his endoscopic ultrasound on Tuesday. Plan discussed with patient and his daughter Mariam. Patient is DNR/DNI. Patient has remained hemodynamically stable with oxygen saturation mid 90s on room air. Demonstrates no signs of respiratory distress. Medical Records Medical records reviewed: Yes I reviewed the patient's medical records. Medical records narrative: 10/19/21 Abdomen/Pelvis CT: IMPRESSION: 1. Compared to the CT scan of 2017 there has been significant deterioration.? There is presently a cirrhotic appearing liver which has increased in size.? In addition the previously present benign-appearing cysts in the liver there are now multiple hypodensities which are probably metastatic lesions in the liver.? There is some ascites evident-mild.? This is most evident in the pelvis and extends into bilateral inguinal hernias. 2. There is a cystic lesion in the pancreatic tail region measuring 2 x 3 x 4 cm.? This is probably a cystic neoplasm.? This may or may not be responsible for the liver lesions. 3. Extensive sigmoid diverticulosis.? Cannot exclude subtle diverticulitis. 4. There are small benign cysts in both kidneys; the largest cyst previously present which was in the left kidney is no longer seen.? That was a parapelvic cyst.? There are 2 nonobstructive calculi in left kidney noted.? One of these is in the nondilated renal pelvis.? The ureters are not dilated and there are no calculi in the nondilated ureters nor within the nondistended urinary bladder. 5.? Bilateral pleural effusions, right larger than left.? The right pleural effusion is so seated with some volume loss in the posterior basal segment of the right lower lobe as well as some mild infiltrate. 6.? 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 This additional left-sided IVC drains into the left renal vein. Imaging Data Radiologic Study: Radiologist's impression: CT CHEST PE ABD ? PELVIS W CLINICAL HISTORY:? tachycardia, upper abdominal pain, sob TECHNIQUE:? CT examination of the chest, abdomen, and pelvis was performed with intravenous infusion of 100 cc of Omnipaque 350. COMPARISON:? CT CT ABDOMEN ? PELVIS W from 10/19/2021 FINDINGS: There is a very large right pleural effusion which is increased markedly in size since prior examination of October 19.? A small to moderate-sized left pleural effusion is also noted.? There is marked right pulmonary atelectasis cyst secondary to the right pleural effusion which occupies approximately 80 percent of the right thoracic volume. . There is no mediastinal or hilar adenopathy. Pulmonary arteries are unremarkable with no evidence of pulmonary embolic diseas e. Thoracic aorta and major branches appear intact with no evidence of aneurysm or dissection. No bony abnormality seen in the thorax. Note is again made of innumerable presumed hepatic metastases along with some previously noted hepatic cysts.? Marked interval progression of metastatic disease since prior examination of October 19..? Gallbladder and bile ducts are CT normal. No abnormality seen involving the spleen. Pancr questionable pancreatic tail mass or mass is again noted, no gross interval change from prior examination.. The adrenals are unremarkable in appearance.? The kidneys appear intact with no evidence of hydronephrosis or nephrolithiasis. Abdominal aorta and major visceral branches appear intact. No significant abdominal wall hernia seen.? No significant abdominal or pelvic adenopathy. The colon Is possibly mildly thick-walled, but this may just be due underdistention.? Please correlate regarding any possibility of colitis.? There is mild abdominal ascites. No evidence of appendicitis or diverticulitis. IMPRESSION: Marked interval worsening of right pleural effusion which now occupies a large portion of the right thoracic volume.? There is significant right lung atelectasis. Interval increase in size of presumed innumerable hepatic metastases. Additional findings as described above. Lab Data Lab results reviewed: Yes I reviewed the patient's lab results. Labs: Laboratory Tests Range/Units 11/07/21 11/07/21 11/07/21 13:07 13:07 14:48 WBC (4.4-10.8) 10^3/uL 13.29 H RBC (4.36-5.78) 10^6/uL 4.55 Hgb (13.5-17.5) g/dL 13.9 Hct (40.0-50.0) % 43.3 MCV (80-95) fL 95.2 H MCH (27.0-33.0) pg 30.5 MCHC (32.0-36.0) % 32.1 RDW (11.8-14.1) % 15.9 H Plt Count (130-400) 10^3/uL 270 MPV (8.0-11.0) fL 11.5 H Immature Gran % 0.7 Neutrophils % 88.2 Lymphocytes % 3.0 Monocytes % 8.0 Eosinophils % 0.0 Basophils % 0.1 Nucleated RBC % % 0 Absolute Neutrophils (1.2-6.7) 10^3/uL 11.72 H Absolute Lymphocytes (1.2-3.4) 10^3/uL 0.40 L Absolute Monocytes (0.1-0.8) 10^3/uL 1.06 H Absolute Eosinophils (0.0-0.7) 10^3/uL 0.00 Absolute Basophils (0.0-0.2) 10^3/uL 0.01 Sodium (136-145) mmol/L 138 Potassium (3.5-5.1) mmol/L 4.9 Chloride (98-107) mmol/L 104 Carbon Dioxide (21.0-32.0) mmol/L 23.9 Anion Gap (3-11) mmol/L 10.1 BUN (7-18) mg/dL 45 H Creatinine (0.70-1.30) mg/dL 1.4 H Estimated GFR/1.73 m2 (mL/min/1.73m2) 49.68 Glucose (74-106) mg/dL 135 H Calcium (8.5-10.1) mg/dL 8.7 Magnesium (1.8-2.4) mg/dL 2.3 Total Bilirubin (0.2-1.0) mg/dL 5.8 H AST (15-37) U/L 421 H ALT (16-63) U/L 92 H Alkaline Phosphatase (46-116) U/L 600 H Troponin I (<or=60) ng/L < 50 Total Protein (6.4-8.2) g/dL 6.5 Albumin (3.4-5.0) g/dL 2.4 L Lipase (73-393) U/L 202 Urine Color (Yellow) Yellow Urine Clarity (Clear) Clear Urine pH (5-8) 5.5 Ur Specific [employer] (1.005-1.025) 1.020 Urine Protein (Negative) mg/dL 30 H Urine Ketones (Negative) mg/dL Negative Urine Blood (Negative) Trace-lysed H Urine Nitrite (Negative) Negative Urine Bilirubin (Negative) Small H Urine Urobilinogen (Up TO 0.2) EU/dL 1.0 H Ur Leukocyte Esterase (Negative) Negative Urine RBC (0-2) HPF 10-20 H Urine WBC (0-5) HPF 0-2 Ur Epithelial Cells (Negative) HPF Negative Urine Crystals (Negative) HPF Few Amorphous Urine Bacteria (Negative) HPF Negative Urine Casts (Negative) LPF 10-20 Fine Granular Urine Mucus (Negative) Negative Urine Other (Negative) Negative Ur Culture Indicated? No Urine Glucose (Negative) mg/dL Negative ECG Data Attestation: I personally reviewed and interpreted this ECG (s) as follows: Interpretation: Rate of 127, atrial fibrillation, no STEMI HPI General Mode of arrival: ambulatory . Date/Time Provider Initiated Documentation: 11/07/21 12:40 . Limitations to Documentation: no limitations . Information obtained by: patient . HPI Narrative: Patient is a 71-year-old male with a history of colon cancer, liver metastases and newly diagnosed pancreatic lesion, atrial fibrillation, hypertension, hyperlipidemia, GERD who presents from home for hand, abdominal, leg swelling, abdominal pain, tachycardia and diarrhea. Patient states he has had a mixture of watery and loose brown with occasional blood streaks of diarrhea for the past 2 months. He states he is scheduled for an upper endoscopy at [facility] this week. He states he has had chronic bilateral lower extremity edema but states it has been worse recently. He admits to right hand edema over the past few days. He states he has chronic upper abdominal pains but states it has been worse today. He states home health and his daughter noted that his heart rate was fast in the 120s today. He does admit to shortness of breath that is worse with exertion. Patient denies any known fever, chest pain or vomiting. Related Data Home Medications Medication Instructions Recorded Confirmed Centrum Silver Tablet 1 ea PO DAILY 01/30/13 11/07/21 ibuprofen 200 mg capsule 200 mg PO PRN PRN 08/15/18 11/07/21 finasteride 5 mg tablet 5 mg PO DAILY #90 tab 11/18/20 11/07/21 omeprazole 20 mg tablet,delayed 20 mg PO DAILY PRN #90 tab 11/18/20 11/07/21 release simvastatin 10 mg tablet 10 mg PO QPM #90 tab 11/18/20 11/07/21 lorazepam 1 mg tablet 1 mg PO DAILY PRN #7 tab 04/14/21 11/07/21 alfuzosin 10 mg tablet,extended 10 mg PO .q t, th,s,sun #48 tab 06/17/21 11/07/21 release 24 hr diltiazem HCl 360 mg 360 mg PO DAILY #30 cap 10/30/21 11/07/21 capsule,extended release 24 hr metoprolol succinate 50 mg 50 mg PO DAILY 11/07/21 11/07/21 tablet,extended release 24 hr Previous Rx's Medication Instructions Recorded finasteride 5 mg tablet 5 mg PO DAILY #90 tab 11/18/20 omeprazole 20 mg tablet,delayed 20 mg PO DAILY PRN #90 tab 11/18/20 release simvastatin 10 mg tablet 10 mg PO QPM #90 tab 11/18/20 lorazepam 1 mg tablet 1 mg PO DAILY PRN #7 tab 04/14/21 alfuzosin 10 mg tablet,extended 10 mg PO .q t, th,s,sun #48 tab 06/17/21 release 24 hr diltiazem HCl 360 mg 360 mg PO DAILY #30 cap 10/30/21 capsule,extended release 24 hr Allergies Allergy/AdvReac Type Severity Reaction Status Date / Time Penicillins Allergy Intermediate HIVES Verified 11/07/21 12:41 Sulfa (Sulfonamide Allergy Intermediate HIVES Verified 11/07/21 12:41 Antibiotics) ciprofloxacin HCl AdvReac Intermediate INTOLERANCE Verified 11/07/21 12:41 [From Cipro] TO CIPRO General Stated Complaint: SOB REBEKA: 2 Review of Systems All systems reviewed & are unremarkable except as noted in HPI and below Constitutional Constitutional: Reports as per HPI, Denies chills and Denies fever(s) Eyes Eyes: Denies blurry vision ENT Ears, Nose, Mouth, and Throat: Denies dizziness, Denies sore throat and Denies throat swelling Cardiovascular Cardiovascular: Denies chest pain, Reports rapid heart rate and Reports dyspnea Respiratory Respiratory: Denies cough and Reports dyspnea Gastrointestinal Gastrointestinal: Reports abdominal pain, Reports diarrhea and Denies vomiting Genitourinary Genitourinary: Denies hematuria and Denies dysuria Musculoskeletal Musculoskeletal: Denies back pain and Denies numbness Integumentary/Breasts Skin/Breast: Denies lesions and Denies rash Neurologic Neurologic: Denies dizziness, Denies localized weakness and Denies numbness Allergic/Immunologic Allergic/Immunologic: Denies throat swelling PFSH All Active Problems (Updated 11/07/21 @ 18:26 by Debbie Johnson DO) Pleural effusion (Acute) Liver metastases (Acute) Atrial fibrillation with rapid ventricular response (Acute) Peripheral edema (Acute) Transaminitis (Acute) Hyperbilirubinemia (Acute) Hyperglycemia (Acute) Abdominal pain (Acute) Tinnitus (Acute) Spondylolisthesis of lumbosacral region (Acute) Lumbar pain (Acute) Hip pain, right (Acute) Neck pain on right side (Acute) Erectile dysfunction (Acute) Decreased visual acuity (Acute) Tick bite (Acute) Seborrheic keratoses (Acute) Presence of Watchman left atrial appendage closure device (Acute) Elevated serum creatinine (Acute) Cold extremities (Acute) Afib (Chronic) Chest pain (Acute) Rash of groin (Acute) Urinary tract infection (Chronic) Varicose veins of lower extremity (Chronic) vein stripping Tubular adenoma (Chronic) 11/08/14 Supraventricular tachycardia (Chronic 01/31/13) ablation Spinal stenosis (Chronic) Sciatica (Chronic) History of tobacco use (Chronic) Hematuria (Chronic 02/07/17) Generalized osteoarthrosis (Chronic) mild c5-6 narrowing; left radiculopathy; spinal stenosis Essential hypertension (Chronic 11/27/13) 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 DA SILVA: RIGHT URETEREAL CALCULUS, TREATED W/ DIET Medical History (Updated 11/07/21 @ 18:26 by Debbie Johnson DO) Atrial fibrillation Benign prostatic hyperplasia retention 2013 Gastroesophageal reflux disease without esophagitis (08/13/15) Generalized osteoarthrosis mild c5-6 narrowing; left radiculopathy; spinal stenosis Hyperlipidemia (01/31/13) Hypertension Kidney stones (08/26/17) Liver metastases Pancreatic lesion Surgical History H/O colonoscopy (08/15/18) Dr Carbone, no abnormalities, repeat 10 years. Kidney Stone Extraction 04/07/17-DR. BANEGAS Family History Mother , age 97 Neoplasm BREAST Breast cancer Bladder cancer Stroke Father , age 92 Heart disease Sister Ovarian cancer Maternal Grandfather , age 72 Emphysema lung Tobacco use Paternal Grandfather , age 84 Measles Diabetes Maternal Grandmother , age 89 Essential hypertension Paternal Grandmother , age 62 No problems noted. Sister No problems noted. Son Asthma Depression Daughter Heart disease Daughter No problems noted. Social History (Updated 06/17/21 @ 16:00 by Caro Tavera) Smoking/Tobacco Use Status: Former Tobacco Use Quit status: not considering quitting Second Hand Exposure: Yes Smoking risk assessment performed?: Yes Alcohol Intake: never Drug use: Never Substance use type: does not use Do you feel safe in your relationship?: Yes Exam GI Other: There is erythema noted to the buttocks surrounding anus. No obvious open wounds or ulcers Extrem Other: Right upper extremity edema, non-pitting. 2+ pitting bilateral lower extremity edema. Course Vital Signs Vital signs: Vital Signs Temperature 97.7 F 11/07/21 12:32 Pulse 157 H 11/07/21 12:32 Respiratory Rate 24 11/07/21 12:32 Blood Pressure 120/84 11/07/21 12:32 Pulse Oximetry 96 11/07/21 12:32 Temperature 97.7 F 11/07/21 12:32 Temperature Source Skin 11/07/21 12:32 Pulse 157 H 11/07/21 12:32 Respiratory Rate 24 11/07/21 12:32 Respiratory Effort Labored 11/07/21 12:32 Blood Pressure 120/84 11/07/21 12:32 Blood Pressure Position Supine 11/07/21 12:32 Pulse Oximetry 96 11/07/21 12:32 Oxygen Delivery Method Room Air 11/07/21 12:32 Oxygen Flow Rate 0 11/07/21 12:32 Pain Level 8 11/07/21 12:32
[2021-11-07 13:14] LABS: Abs Immature Grans 0.09 10^3/uL (0.0-0.06); Absolute Basophil Count 0.01 10^3/uL (0.0-0.2); Absolute Monocyte Count 1.06 10^3/uL (0.1-0.8); Basophils % 0.1; HCT 43.3 % (40.0-50.0); HGB 13.9 g/dL (13.5-17.5); Immature Grans % 0.7; MCH 30.5 pg (27.0-33.0); MCHC 32.1 % (32.0-36.0); MCV 95.2 fL (80-95); MPV 11.5 fL (8.0-11.0); Neutrophils % 88.2; Nucleated RBC 0 %; Platelet Count 270 10^3/uL (130-400); RBC 4.55 10^6/uL (4.36-5.78); RDW 15.9 % (11.8-14.1); RDW-SD 55.9 fL; WBC 13.29 10^3/uL (4.4-10.8)
[2021-11-07 13:15] LABS: Absolute Neutrophil Count 11.72 10^3/uL (1.2-6.7)
[2021-11-07 13:30] LABS: ALT 92 U/L (16-63); AST 421 U/L (15-37); Albumin 2.4 g/dL (3.4-5.0); Alkaline Phosphatase 600 U/L (46-116); Anion Gap 10.1 mmol/L (3-11); BUN 45 mg/dL (7-18); Bilirubin, Total 5.8 mg/dL (0.2-1.0); CO2 23.9 mmol/L (21.0-32.0); CREATININE 1.4 mg/dL (0.70-1.30); Calcium 8.7 mg/dL (8.5-10.1); Chloride 104 mmol/L (98-107); Estimated GFR 49.68 (mL/min/1.73m2); Glucose 135 mg/dL (74-106); Lipase 202 U/L (73-393); Magnesium 2.3 mg/dL (1.8-2.4); Potassium 4.9 mmol/L (3.5-5.1); Sodium 138 mmol/L (136-145); Total Protein 6.5 g/dL (6.4-8.2); Troponin I < 50 ng/L (<or=60)
--- NOTE | 2021-11-07 13:45 | DI.CT_ITS ---
Exam(s) CT CHEST PE ABD PELVIS W EXAM: CT CHEST PE ABD PELVIS W CLINICAL HISTORY: tachycardia, upper abdominal pain, sob TECHNIQUE: CT examination of the chest, abdomen, and pelvis was performed with intravenous infusion of 100 cc of Omnipaque 350. COMPARISON: CT CT ABDOMEN PELVIS W from 10/19/2021 FINDINGS: There is a very large right pleural effusion which is increased markedly in size since prior examinat ion of October 19. A small to moderate-sized left pleural effusion is also noted. There is marke d right pulmonary atelectasis cyst secondary to the right pleural effusion which occupies approximate ly 80 percent of the right thoracic volume. . There is no mediastinal or hilar adenopathy. Pulmonary arteries are unremarkable with no evidence of pulmonary embolic disease. Thoracic aorta and major branches appear intact with no evidence of aneurysm or dissection. No bony abnormality seen in the thorax. Note is again made of innumerable presumed hepatic metastases along with some previously noted hepati c cysts. Marked interval progression of metastatic disease since prior examination of October 19. . Gallbladder and bile ducts are CT normal. No abnormality seen involving the spleen. Pancr questionable pancreatic tail mass or mass is again noted, no gross interval change from prior e xamination.. The adrenals are unremarkable in appearance. The kidneys appear intact with no evidence of hydroneph rosis or nephrolithiasis. Abdominal aorta and major visceral branches appear intact. No significant abdominal wall hernia seen. No significant abdominal or pelvic adenopathy. The colon Is possibly mildly thick-walled, but this may just be due underdistention. Please correlat e regarding any possibility of colitis. There is mild abdominal ascites. No evidence of appendicitis or diverticulitis. IMPRESSION: Marked interval worsening of right pleural effusion which now occupies a large portion of the right t horacic volume. There is significant right lung atelectasis. Interval increase in size of presumed innumerable hepatic metastases. Additional findings as described above. RADIATION DOSE DELIVERED: 2,006.62mGy.cm Total DLP 2,006.62mGy.cm Total DLP !Error CTDIvol
[2021-11-07] MEDS: HYDROmorphone 2 MG/ML VIAL 0.5 MG IVP (14:03)
[2021-11-07] MEDS: dilTIAZem 25 MG/5 ML VIAL 15 MG IVP (14:04)
[2021-11-07] MEDS: Furosemide 40 MG/4 ML VIAL IVP (14:04)
[2021-11-07] MEDS: Omnipaque 350 MG/ML 100 ML BTL IJ (14:44)
[2021-11-07] MEDS: Normal Saline Flush 10 ML SYR IVP (14:45)
[2021-11-07 14:57] LABS: Bilirubin Small (Negative); Blood Trace-lysed (Negative); Clarity Clear (Clear); Glucose Negative (Negative); Ketones Negative (Negative); Leukocyte Esterase Negative (Negative); Nitrite Negative (Negative); pH 5.5 (5-8)
[2021-11-07 15:06] LABS: WBC 0-2 HPF (0-5)
[2021-11-07 15:07] LABS: Bacteria Negative HPF (Negative); C & S Indicated? No; Crystals Few Amorphous HPF (Negative); Epithelial Cells Negative HPF (Negative); Mucus Negative (Negative); Other Cells Negative (Negative)
== END 2021-11-07 18:38 | disposition short-term general hospital (02) ==
PROVIDERS: Emergency Provider Physician Assistant; PCP Family Medicine
DX: J90 Pleural effusion, not elsewhere classified (principal); I48.91 Unspecified atrial fibrillation; R60.0 Localized edema; R74.01 Elevation of levels of liver transaminase levels; E80.6 Other disorders of bilirubin metabolism; C18.9 Malignant neoplasm of colon, unspecified; C78.7 Secondary malignant neoplasm of liver and intrahepatic bile duct; R00.0 Tachycardia, unspecified; K86.89 Other specified diseases of pancreas; R06.02 Shortness of breath
CPT/HCPCS: 36415; 71275; 74177; 80053; 83690; 93005; 96374; 96375; 99285; 81003; 81015; 83735; 84484; 85025; 93010; 99284; J1940; J3490